=== PATIENT | female | born 1965 | race Caucasian/White ===

== ENCOUNTER 2017-11-18 11:18 | Outpatient (CLI) | payer OTHER ==
--- NOTE | 2017-11-22 09:00 | Mammography Report ---
BILATERAL DIGITAL SCREENING MAMMOGRAM: 11/19/2017 CLINICAL INDICATION: A 52-year-old with history of late childbearing for screening. TECHNIQUE: Routine CC and MLO projections as well as bilateral laterally exaggerated craniocaudal views were obtained of the breasts. COMPARISON: 05/2015, 04/2015, 01/2012, 11/2010. FINDINGS: The breasts again demonstrate heterogeneously dense fibroglandular parenchyma bilaterally. Coarse and punctate, typically benign calcifications are present. A cardiac rhythm recorder is noted in the left lower inner breast. No suspicious masses, clustered microcalcifications, or regions of architectural distortion are identified. IMPRESSION: Benign findings. RECOMMENDATIONS: Routine annual screening unless otherwise clinically indicated. BIRADS category 2 benign findings. STANDARD QUALIFYING STATEMENTS 1. This examination was reviewed with the aid of Computed-Aided Detection (CAD) . 2. A negative or benign imaging report should not delay biopsy if clinically suspicious findings are present. Consider surgical consultation if warranted. More than 5% of cancers are not identified by imaging. 3. Dense breasts may obscure an underlying neoplasm. TD: 11/19/2017 19:10 HAL
== END 2017-11-18 11:19 | disposition home or self-care (01) ==
LOC: DI 11:18
PROVIDERS: ATTEND Family Medicine
DX: Z12.31 Encounter for screening mammogram for malignant neoplasm of breast (principal)
CPT/HCPCS: 77067

== ENCOUNTER 2020-06-03 10:32 | Emergency (ER) | payer OTHER ==
--- NOTE | 2020-06-03 11:14 | XRAY Report ---
PROCEDURE: Foot 3 View LT INDICATIONS: fall, L foot pain TECHNIQUE: 3 views of the foot were acquired. COMPARISON: None. FINDINGS: Bones: Oblique fracture through the fifth metatarsal shaft. No significant displacement. No dislocat ions. No suspicious bony lesions. Soft tissues: No tibiotalar joint effusion. Achilles tendon appears normal. IMPRESSION: Oblique fracture through the fifth metatarsal shaft. Reviewed by: Nura Singh MD on 06/03/2020 11:13 AM PDT Approved by: Nura Singh MD on 06/03/2020 11:13 AM PDT Station ID: [id number]
--- NOTE | 2020-06-03 11:17 | ED Physician Documentation ---
History of Present Illness - Stated complaint Stated Complaint: LT FOOT INJURY - Chief complaint Chief Complaint: Ext Problem - History obtained from History obtained from: Patient, Family - History of Present Illness Timing: Today Pain level max: 6 Pain level now: 5 - Additonal information Additional information: 55-year-old female was running today when she stepped off a curb awkwardly and injured the lateral aspect of her left foot. Worse with walking, better with rest. No swelling or deformity. No other injuries. No numbness or tingling. 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 : None HEENT: Other Psych: None Musculoskeletal: None Derm: None - Past Surgical History Past Surgical History: Yes General: Colonoscopy - Present Medications Home Medications: Ambulatory Orders Medication Instructions Recorded Confirmed Cyclobenzaprine [Flexeril] 10 mg PO TID PRN #60 tablet 08/28/16 HYDROcod/ACETAM 5/325 [[place] 5/325] 1 tab PO Q4HR PRN #45 tablet 08/28/16 Ibuprofen [Motrin] 600 mg PO Q6HR PRN #60 tablet 08/28/16 polyethylene glycoL 3350 [Miralax] 17 gm PO DAILY #2 packet 08/28/16 - Allergies Allergies/Adverse Reactions: Allergies Allergy/AdvReac Type Severity Reaction Status Date / Time No Known Drug Allergies Allergy Verified 06/03/20 10:41 - Social History Does the pt smoke?: No Smoking Status: Never smoker Does the pt drink ETOH?: No Does the pt have substance abuse?: No - Immunizations Immunizations are current?: Yes - POLST Patient has POLST: No PD ED PE NORMAL - Vitals Vital signs reviewed: Yes - General General: Alert and oriented X 3, No acute distress, Well developed/nourished - HEENT HEENT: Moist mucous membranes - Derm Derm: Warm and dry - Extremities Extremities: Other (Tender to palpation over the distal aspect of the fifth metatarsal. Neurovascularly intact. No deformity. No swelling. Otherwise normal examination of the left foot, ankle and lower leg) - Neuro Neuro: Alert and oriented X 3 Results - Vitals Vitals: Vital Signs - 24 hr 06/03/20 06/03/20 10:35 11:53 Temperature 36.2 C L 37.1 C Heart Rate 65 71 Respiratory 16 18 Rate Blood Pressure 112/89 H 117/84 H O2 Saturation 100 9 L Oxygen O2 Source Room air - Rads (name of study) Left foot x-ray Radiology: Prelim report reviewed, EMP read contemporaneously, See rad report (Oblique fracture through the fifth metatarsal shaft. ) Procedures - Splint (location) Left lower extremity Splint applied by: Physician, Tech Type of splint: Fiberglass, Short leg, Posterior Other: Patient tolerated well, No complications, Neurovascular intact, Other (Patient has her own crutches) PD MEDICAL DECISION MAKING - ED course Complexity details: reviewed results, re-evaluated patient, considered di fferential, d/w patient, d/w family ED course: Patient with an oblique fracture of the fifth metatarsal. Placed in a short leg posterior splint. She has her own crutches. We will have her follow-up with orthopedics for further care. We will make her nonweightbearing at this time. Patient declines pain medication for home. Patient counseled regarding signs and symptoms for which I believe and urgent re-evaluation would be necessary. Patient with good understanding of and agreement to plan and is comfortable going home at this time This document was made in part using voice recognition software. While efforts are made to proofread this document, sound alike and grammatical errors may occur. Neurovascular intact after splint application Departure - Departure Disposition: 01 Home, Self Care Clinical Impression: Fracture of fifth metatarsal bone Qualifiers: Encounter type: initial encounter Fracture type: closed Fracture alignment: nondisplaced Laterality: left Qualified Code(s): S92.355A - Nondisplaced fracture of fifth metatarsal bone, left foot, initial encounter for closed fracture Condition: Good Instructions: ED Fx Foot Follow-Up: Madeleine Alamo DO [Primary Care Provider] - [facility] [Provider Group] - Within 1 week Comments: Return if you worsen. Follow-up with orthopedics in about a week for repeat evaluation. Discharge Date/Time: 06/03/20 11:53
[2020-06-03 11:54] VITALS: BP 117/84
== END 2020-06-03 11:53 | disposition home or self-care (01) ==
LOC: ED 10:32
DX: S92.355A Nondisplaced fracture of fifth metatarsal bone, left foot, initial encounter for closed fracture (principal); X50.1XXA Overexertion from prolonged static or awkward postures, initial encounter; Y93.02 Activity, running
CPT/HCPCS: 29515

== ENCOUNTER 2020-07-18 09:00 | Outpatient (CLI) | payer OTHER ==
--- NOTE | 2020-07-18 13:37 | XRAY Report ---
PROCEDURE: Foot 3 View LT INDICATIONS: LEFT 5TH METATARSAL FRACTURE TECHNIQUE: 3 views of the foot were acquired. COMPARISON: 06/03/2020 FINDINGS: Bones: Again noted is a oblique shaft fracture of the fifth metatarsal. Mild displacement has develop ed. There is early progress in healing. No other fractures or dislocations. Disuse osteopenia. Soft tissues: No tibiotalar joint effusion. Achilles tendon appears normal. IMPRESSION: Interval development of mild displacement of a mid shaft fifth metatarsal fracture. Early progress in healing. Reviewed by: Derek Patterson MD on 07/18/2020 9:28 AM PDT Approved by: Derek Patterson MD on 07/18/2020 9:28 AM PDT Station ID: [id number]
== END 2020-07-18 23:59 | disposition home or self-care (01) ==
LOC: DI.WCP 09:00
PROVIDERS: ATTEND Orthopaedic Surgery
DX: S92.352D Displaced fracture of fifth metatarsal bone, left foot, subsequent encounter for fracture with routine healing (principal)

== ENCOUNTER 2021-01-31 16:33 | Outpatient (CLI) | payer OTHER ==
--- NOTE | 2021-01-31 17:19 | XRAY Report ---
PROCEDURE: Knee 4 View RT INDICATIONS: RT KNEE PAIN TECHNIQUE: 4 views of the right knee(s) were acquired. COMPARISON: None. FINDINGS: Bones: No fractures or dislocations. Mild tricompartment osteoarthritis is seen more prominent in me dial femoral tibial compartment. No suspicious bony lesions. Soft tissues: Small to moderate suprapatellar joint effusion is noted. No suspicious soft tissue calc ifications. IMPRESSION: Mild tricompartment osteoarthritis and small to moderate suprapatellar joint effusion. Reviewed by: Dao Maria MD on 01/31/2021 5:18 PM PST Approved by: Dao Maria MD on 01/31/2021 5:18 PM PST Station ID: [id number]
== END 2021-01-31 16:34 | disposition home or self-care (01) ==
LOC: DI 16:33
PROVIDERS: ATTEND Family Medicine
DX: M17.11 Unilateral primary osteoarthritis, right knee (principal); M25.461 Effusion, right knee

== ENCOUNTER 2022-02-21 09:32 | Outpatient (CLI) | payer OTHER ==
[2022-02-21 11:50] LABS: BASOPHILS # (AUTO) 0.1 10^3/uL (0.0-0.1); BASOPHILS % (AUTO) 1.3 %; EOSINOPHILS # (AUTO) 0.3 10^3/uL (0.0-0.7); EOSINOPHILS % (AUTO) 4.8 %; HCT - HEMATOCRIT 39.8 % (37.0-47.0); HGB - HEMOGLOBIN 13.3 g/dL (12.0-16.0); LYMPHOCYTES # (AUTO) 2.2 10^3/uL (1.5-3.5); LYMPHOCYTES % (AUTO) 34.4 %; MEAN CORPUSCULAR HEMOGLOBIN 30.6 pg (27.0-31.0); MEAN CORPUSCULAR HGB CONC 33.4 g/dL (32.0-36.0); MEAN CORPUSCULAR VOLUME 91.7 fL (81.0-99.0); MEAN PLATELET VOLUME 9.5 fL (7.9-10.8); MONOCYTES # (AUTO) 0.5 10^3/uL (0.0-1.0); MONOCYTES % (AUTO) 7.8 %; NEUTROPHILS # (AUTO) 3.3 10^3/uL (1.5-6.6); NEUTROPHILS % (AUTO) 51.4 %; PLT - PLATELET COUNT 248 10^3/uL (130-450); RED BLOOD COUNT 4.34 10^6/uL (4.20-5.40); RED CELL DISTRIBUTION WIDTH 12.7 % (12.0-15.0); WHITE BLOOD COUNT 6.4 x10^3/uL (4.8-10.8)
[2022-02-21 12:37] LABS: BILIRUBIN,TOTAL 0.5 mg/dL (0.2-1.0); CALCIUM 9.3 mg/dL (8.5-10.3); CREATININE 0.8 mg/dL (0.4-1.0); CRP - C-REACTIVE PROTEIN 3.7 mg/dL (0-1.0); POTASSIUM 4.5 mmol/L (3.5-5.0); TOTAL PROTEIN 8.1 g/dL (6.7-8.2)
[2022-02-21 12:47] LABS: THYROID STIMULATING HORMONE 1.74 uIU/mL (0.34-5.60)
== END 2022-02-21 09:33 | disposition home or self-care (01) ==
LOC: LAB.N 09:32
PROVIDERS: ATTEND Physician Assistant Medical
DX: G44.209 Tension-type headache, unspecified, not intractable (principal)
CPT/HCPCS: 36415; 80053; 84443; 85025; 85651; 86140

== ENCOUNTER 2022-02-21 14:50 | Outpatient (CLI) | payer OTHER ==
--- NOTE | 2022-02-21 15:13 | CT Report ---
PROCEDURE: HEAD WO INDICATIONS: TENSION HEADACHE TECHNIQUE: Noncontrast 4.5 mm thick angled axial sections acquired from the foramen magnum to the vertex. For r adiation dose reduction, the following was used: automated exposure control, adjustment of mA and/or kV according to patient size. COMPARISON: None. FINDINGS: Image quality: Excellent. CSF spaces: Basal cisterns are patent. No extra-axial fluid collections. Ventricles are normal in size and shape. Brain: No midline shift. No intracranial masses or hemorrhage. Benoit-white matter interface is norm al. Skull and face: Calvarium and visualized facial bones are intact, without suspicious lesions. Sinuses: Visualized sinuses and mastoids are clear. IMPRESSION: No CT evidence of acute intracranial abnormalities. Reviewed by: Dao Maria MD on 02/21/2022 3:12 PM PDT Approved by: Dao Maria MD on 02/21/2022 3:12 PM PDT Station ID: [id number]
== END 2022-02-21 14:51 | disposition home or self-care (01) ==
LOC: DI 14:50
PROVIDERS: ATTEND Physician Assistant Medical
DX: G44.209 Tension-type headache, unspecified, not intractable (principal)

== ENCOUNTER 2022-03-02 08:49 | Emergency (ER) | payer OTHER ==
--- NOTE | 2022-03-02 09:32 | ED Physician Documentation ---
PD HPI HEADACHE - Stated complaint Stated Complaint: HEAD PX - Chief complaint Chief Complaint: Neuro - History obtained from History obtained from: Patient - History of Present Illness Timing - onset: How many days ago (24) Timing - onset during: Rest Timing - duration: Days (24) Timing - details: Gradual onset, Still present Pain level max: 6 Pain level now: 5 Location: Global Quality: Tightness Associated symptoms: Nausea, Other (tinitus). No: Fever, Stiff neck, Vomiting, Weakness, Numbness, Syncope, Seizure, Eye pain, Vision changes Improved by: Nothing Worsened by: Other (excersize) Contributing factors: Recent illness (had COVID in December). No: Anticoagulated, Hypertension Similar symptoms before: Has not had sx before Recently seen: Clinic - Additional information Additional information: 56-year-old female previously well developed COVID in December of this year and she had the of her father and that month as well. She has now developed a headache over the past 24 days that has been present daily described as a band around her head of tightness. She has some pain to the left mastoid area. She has had some ringing in her ears as well. Otherwise she has no other specific symptoms. She initially continue to do her physical activity her running and hiking and found that maybe her headache was a little worse after that. She stopped doing this over the past 2 weeks. Despite that she is not had any r esolution of her headache. She is gone in to see JUJU Juárez has had a blood work done and a CAT scan of her head and she has been trialed on some Flexeril she is not had relief with Toradol she is not had relief with ibuprofen or Tylenol. She describes that she does not feel that she is currently under stress despite the fact that she has had the recent passage of her father 2 months ago. 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 She has not have vomiting, photophobia, stiff neck, fever, ear nose or throat congestion. She does not have a rash in the scalp or area of redness or tenderness except for the left mastoid which is mildly tender. Review of Systems Constitutional: denies: Fever Eyes: denies: Decreased vision Ears: denies: Ear pain Nose: denies: Rhinorrhea / runny nose, Congestion Throat: denies: Sore throat Cardiac: denies: Chest pain / pressure, Palpitations Respiratory: denies: Dyspnea, Cough GI: reports: Nausea. denies: Abdominal Pain, Vomiting, Constipation, Diarrhea : denies: Dysuria, Frequency Skin: denies: Rash Musculoskeletal: denies: Neck pain, Back pain, Extremity pain, Joint swelling Neurologic: reports: Headache. denies: Generalized weakness, Focal weakness, Numbness, Difficulty speaking, Near syncope, Syncope, Seizure, Confused, Altered mental status, Head injury, LOC Psychiatric: reports: Insomnia. 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 : None HEENT: Other Psych: None Musculoskeletal: None Derm: None - Past Surgical History Past Surgical History: Yes General: Colonoscopy - Present Medications Home Medications: Ambulatory Orders Medication Instructions Recorded Confirmed HYDROcod/ACETAM 5/325 [[place] 5/325] 1 - 2 tablet PO Q6H PRN #14 tablet 03/02/22 - Allergies Allergies/Adverse Reactions: Allergies Allergy/AdvReac Type Severity Reaction Status Date / Time No Known Drug Allergies Allergy Verified 06/03/20 10:41 - Social History Does the pt smoke?: No Smoking Status: Never smoker Does the pt drink ETOH?: No Does the pt have substance abuse?: No - Immunizations Immunizations are current?: Yes - POLST Patient has POLST: No PD ED PE NORMAL - Vitals Vital signs reviewed: Yes (normal ) - General General: Alert and oriented X 3, No acute distress, Well developed/nourished - HEENT HEENT: Atraumatic, PERRL, EOMI, Ears normal, Moist mucous membranes, Pharynx benign, Dentition benign - Neck Neck: Supple, no meningeal sign, No bony TTP, No adenopathy, Other (no tenderness or muscle tightness to the trapezius at the insertion to the occiput. mild tenderness to the left mastoid air cells. 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, No motor deficit, No sensory deficit, Normal speech Eye Opening: Spontaneous Motor: Obeys Commands Verbal: Oriented GCS Score: 15 - Psych Psych: Normal mood, Normal affect Results - Vitals Vitals: Vital Signs - 24 hr 03/02/22 08:53 Temperature 36.4 C L Heart Rate 84 Respiratory 18 Rate Blood Pressure 117/64 O2 Saturation 100 Oxygen O2 Source Room air - Labs Labs: Laboratory Tests 03/02/22 03/02/22 03/02/22 09:31 09:31 09:31 WBC 9.6 RBC 4.37 Hgb 13.5 Hct 40.2 MCV 92.0 MCH 30.9 MCHC 33.6 RDW 13.2 Plt Count 252 MPV 8.5 Neut # (Auto) 3.9 Lymph # (Auto) 4.5 H [place] # (Auto) 0.7 Eos # (Auto) 0.3 Baso # (Auto) 0.1 Absolute Nucleated RBC 0.00 Nucleated RBC % 0.0 Manual Slide Review Indicated WBC Morphology 1+ REACTIVE LYMPHS Platelet Estimate NORMAL (130-450,000) Platelet Morphology NORMAL APPEARANCE RBC Morph Micro Appear NORMAL APPEARANCE ESR 46 H Sodium 130 L Potassium 4.2 Chloride 96 L Carbon Dioxide 27 Anion Gap 7.0 BUN 13 Creatinine 0.7 Estimated GFR (MDRD) 86 L Glucose 98 Calcium 8.9 Total Bilirubin 0.7 AST 37 ALT 65 H Alkaline Phosphatase 138 H C-Reactive Protein 2.2 H Total Protein 7.4 Albumin 3.4 Globulin 4.0 Albumin/Globulin Ratio 0.9 L Lipase 33 TSH 03/02/22 09:31 WBC RBC Hgb Hct MCV MCH MCHC RDW Plt Count MPV Neut # (Auto) Lymph # (Auto) [place] # (Auto) Eos # (Auto) Baso # (Auto) Absolute Nucleated RBC Nucleated RBC % Manual Slide Review WBC Morphology Platelet Estimate Platelet Morphology RBC Morph Micro Appear ESR Sodium Potassium Chloride Carbon Dioxide Anion Gap BUN Creatinine Estimated GFR (MDRD) Glucose Calcium Total Bilirubin AST ALT Alkaline Phosphatase C-Reactive Protein Total Protein Albumin Globulin Albumin/Globulin Ratio Lipase TSH 1.17 PD MEDICAL DECISION MAKING - ED course Complexity details: reviewed old records, reviewed results, re-evaluated patient, considered differential, d/w patient ED course: 56-year-old female with a 24-day long history of persistent daily headache without vomiting photophobia or meningismus has had COVID 2 months ago and she likely has a post COVID headache. She has elevated inflammatory markers and these appear to be improving. I did not find any physical exam finding to be concern for meningitis. The patient has had imaging done which was unrema rkable. I specifically evaluated the images for mastoiditis and found no indication. She has elevated CRP and ESR the CRP is trending down the ESR is lagging and going up. The Alkaline phosphatase is decreasing as is the AST and ALT. Temporal arteritis is still in the differential but the patient did not respond to steroid at a reasonable dose and all of this seems to indicate something different like the post covid headache described by others. Today we will provide some symptomatic relief with narcotic pain reliever especially for sleep at night. I have made a referral to Dr. Loya to consider temporal artery biopsy if she does not spontaneously resolve. Departure - Departure Disposition: 01 Home, Self Care Clinical Impression: Post-COVID chronic headache Condition: Stable Instructions: ED Cephalgia Unspecified Follow-Up: Tarah Juárez PA-C [Primary Care Provider] - Froy Loya MD [Provider Admit Priv/Credential] - Prescriptions: HYDROcod/ACETAM 5/325 [[place] 5/325] 1 - 2 tablet PO Q6H PRN #14 tablet PRN Reason: Pain Comments: Chelo today it looks like the headache you have may be related to long COVID. There are elevated inflammatory markers that are improving. These elevated inflammatory markers can be a sign of temporal arteritis or giant cell arteritis and a follow-up with the silk screen etcher for potential biopsy is indicated.We have provided some narcotic pain reliever for symptomatic relief and these have been E scribed to [facility] in [place]. My recommendation is to take them as needed at night for sleep. My best wish for you is to have resolution of your symptoms spontaneously over the next weeks and not have to undergo the biopsy.
[2022-03-02 09:36] LABS: BASOPHILS # (AUTO) 0.1 10^3/uL (0.0-0.1); BASOPHILS % (AUTO) 0.9 %; EOSINOPHILS # (AUTO) 0.3 10^3/uL (0.0-0.7); EOSINOPHILS % (AUTO) 3.2 %; HCT - HEMATOCRIT 40.2 % (37.0-47.0); HGB - HEMOGLOBIN 13.5 g/dL (12.0-16.0); LYMPHOCYTES # (AUTO) 4.5 10^3/uL (1.5-3.5); LYMPHOCYTES % (AUTO) 47.1 %; MEAN CORPUSCULAR HEMOGLOBIN 30.9 pg (27.0-31.0); MEAN CORPUSCULAR HGB CONC 33.6 g/dL (32.0-36.0); MEAN PLATELET VOLUME 8.5 fL (7.9-10.8); MONOCYTES # (AUTO) 0.7 10^3/uL (0.0-1.0); MONOCYTES % (AUTO) 7.6 %; NEUTROPHILS # (AUTO) 3.9 10^3/uL (1.5-6.6); NEUTROPHILS % (AUTO) 40.5 %; PLT - PLATELET COUNT 252 10^3/uL (130-450); RED BLOOD COUNT 4.37 10^6/uL (4.20-5.40); RED CELL DISTRIBUTION WIDTH 13.2 % (12.0-15.0); WHITE BLOOD COUNT 9.6 x10^3/uL (4.8-10.8)
[2022-03-02 09:56] LABS: ALBUMIN 3.4 g/dL (3.2-5.5); ALBUMIN/GLOBULIN RATIO 0.9 (1.0-2.2); BILIRUBIN,TOTAL 0.7 mg/dL (0.2-1.0); CALCIUM 8.9 mg/dL (8.5-10.3); CREATININE 0.7 mg/dL (0.4-1.0); CRP - C-REACTIVE PROTEIN 2.2 mg/dL (0-1.0); POTASSIUM 4.2 mmol/L (3.5-5.0); TOTAL PROTEIN 7.4 g/dL (6.7-8.2)
[2022-03-02 09:57] LABS: SLIDE REVIEW? Indicated
[2022-03-02 10:30] LABS: RBC MORPHOLOGY (MULTIPLE) NORMAL APPEARANCE (NORMAL)
[2022-03-02 10:31] LABS: PLATELET ESTIMATE, MANUAL NORMAL (130-450,000) (NORMAL); PLATELET MORPHOLOGY NORMAL APPEARANCE (NORMAL); WBC MORPHOLOGY (MULTIPLE) 1+ REACTIVE LYMPHS (NORMAL)
[2022-03-02 11:13] VITALS: BP 110/80
== END 2022-03-02 11:12 | disposition home or self-care (01) ==
LOC: ED 08:49
DX: U09.9 Post COVID-19 condition, unspecified (principal); R51.9 Headache, unspecified
CPT/HCPCS: 36415; 80053; 83690; 84443; 85025; 85651; 86140; 99283; 99284

== ENCOUNTER 2022-09-10 12:21 | Outpatient (CLI) | payer OTHER ==
--- NOTE | 2022-09-11 11:33 | Mammography Report ---
BILATERAL DIGITAL SCREENING MAMMOGRAM 3D/2D: 09/10/2022 CLINICAL: Routine screening. Comparison is made to exams dated: 11/18/2017 mammogram, 05/09/2015 ultrasound, 05/09/2015 mammogram, mammogram, and 02/19/2012 mammogram - [facility]. There are scattered areas of fibroglandular density in both breasts (category b / 25%-50% glandular t issue). There is an irregular asymmetry in the right breast middle depth medial region seen on the craniocaud al view only. No other significant masses, calcifications, or other findings are seen in either breast. IMPRESSION: INCOMPLETE: NEEDS ADDITIONAL IMAGING EVALUATION The irregular asymmetry in the right breast is indeterminate. Additional views with possible ultraso und are recommended. Based on the Tyrer Cuzick model (a risk assessment model) the patients lifetime risk is 9.3% and her 10 year risk is 3.4%. According to the ACR, ACS, and NCCN guidelines, an annual breast MRI exam noé g with mammogram is recommended if the patients lifetime risk is 20% or greater. This exam was interpreted at Station ID: [id number]. NOTE: For mammograms, a report in lay terms will be sent to the patient. Approximately 15% of breast malignancies will not be visualized mammographically. In the management of a palpable breast mass, a negative mammogram must not discourage biopsy of a clinically suspicious lesion. Electronically Signed By: Saman Real M.D. acr/:09/10/2022 13:03:31 ACR BI-RADS Category 0: Incomplete 3340F PARENCHYMAL PATTERN: (A) - The breast(s) demonstrate(s) scattered fibroglandular densities. BI-RADS CATEGORY: (0) - 0 Mammo and [place] [id number] Immediate follow-up LATERALITY: (R)
== END 2022-09-10 12:22 | disposition home or self-care (01) ==
LOC: DI.N 12:21
DX: Z12.31 Encounter for screening mammogram for malignant neoplasm of breast (principal); R92.8 Other abnormal and inconclusive findings on diagnostic imaging of breast

== ENCOUNTER 2022-09-27 12:26 | Outpatient (CLI) | payer OTHER ==
--- NOTE | 2022-09-28 11:18 | Mammography Report ---
UNILATERAL RIGHT DIGITAL DIAGNOSTIC MAMMOGRAM 3D/2D: 09/27/2022 CLINICAL: Patient returns today to evaluate an asymmetry in the right breast. Comparison is made to exams dated: 09/10/2022 mammogram, 11/18/2017 mammogram, 05/09/2015 mammogram, a nd 04/26/2015 mammogram - [facility]. There are scattered areas of fibroglandular density in the right breast (category b / 25%-50% glandul ar tissue). There is a focal asymmetry in the right breast at 5 o'clock anterior depth. This is less prominent. No other significant masses or calcifications are seen in the breast. IMPRESSION: INCOMPLETE: NEEDS ADDITIONAL IMAGING EVALUATION The focal asymmetry in the right breast is indeterminate. An ultrasound is recommended. Based on the Tyrer Cuzick model (a risk assessment model) the patients lifetime risk is 9.9% and her 10 year risk is 3.6%. According to the ACR, ACS, and NCCN guidelines, an annual breast MRI exam noé g with mammogram is recommended if the patients lifetime risk is 20% or greater. This exam was interpreted at Station ID: [id number]. NOTE: For mammograms, a report in lay terms will be sent to the patient. Approximately 15% of breast malignancies will not be visualized mammographically. In the management of a palpable breast mass, a negative mammogram must not discourage biopsy of a clinically suspicious lesion. Electronically Signed By: Jamari cloud/chirs:09/28/2022 09:45:11 ACR BI-RADS Category 0: Incomplete 3340F PARENCHYMAL PATTERN: (A) - The breast(s) demonstrate(s) scattered fibroglandular densities. BI-RADS CATEGORY: (0) - 0 Ultrasound [id number] Immediate follow-up LATERALITY: (R)
--- NOTE | 2022-09-28 11:18 | Ultrasound Report ---
LIMITED ULTRASOUND OF RIGHT BREAST: 09/27/2022 CLINICAL: Patient returns today to evaluate an asymmetry in the right breast. Comparison is made to exams dated: 09/27/2022 mammogram, 09/10/2022 mammogram, and 11/18/2017 mammog [facility]. Color flow and real-time ultrasound of the right breast 5-6 o'clock region were performed. Benoit scal e images of the real-time examination were reviewed. There is a benign 0.7 cm x 0.6 cm x 0.4 cm lymph node with a circumscribed margin in the right breast at 5 o'clock middle depth 3 cm from the nipple. This lymph node is hypoechoic with fatty hilum. Th is most likely correlates with mammography findings. Color flow imaging demonstrates that there is v ascularity present. IMPRESSION: BENIGN There is no sonographic evidence of malignancy. The 0.7 cm x 0.6 cm x 0.4 cm lymph node in the right breast is benign. Return to annual mammogram screening schedule is recommended. This exam was interpreted at Station ID: [id number]. Electronically Signed By: Jamari Bobby M.D. ar/:09/28/2022 09:47:06 Ultrasound BI-RADS: 2 Benign BI-RADS CATEGORY: (2) - 2 Mammogram [id number] return to screening LATERALITY: (B)
== END 2022-09-27 12:27 | disposition home or self-care (01) ==
LOC: DI 12:26
PROVIDERS: ATTEND Nurse Practitioner Family
DX: R92.8 Other abnormal and inconclusive findings on diagnostic imaging of breast (principal)

== ENCOUNTER 2023-09-04 16:32 | Outpatient (CLI) | payer OTHER | END 2023-09-04 16:33 | disposition EMS.NT | LOC: EMS 16:32 | DX: Z04.1 Encounter for examination and observation following transport accident (principal) ==

== ENCOUNTER 2023-10-11 10:04 | Outpatient (CLI) | payer OTHER ==
--- NOTE | 2023-10-11 14:20 | XRAY Report ---
PROCEDURE: Chest 2 View X-Ray INDICATIONS: COUGH TECHNIQUE: 2 views of the chest were acquired. COMPARISON: None. FINDINGS: Surgical changes and devices: There is a leadless cardiac monitoring device. Lungs and pleura: Hyperinflation consistent with COPD. Right middle lobe and lower infiltrate suspic ious for pneumonia. No pleural effusions or pneumothorax. Mediastinum: Mediastinal contours appear normal. Heart size is normal. Bones and chest wall: No suspicious bony lesions. Overlying soft tissues appear unremarkable. IMPRESSION: Right middle and lower lobe pneumonia. Reviewed by: Bruce Spann MD on 10/11/2023 2:18 PM PST Approved by: Bruce Spann MD on 10/11/2023 2:18 PM PST Station ID: [id number]
== END 2023-10-11 10:05 | disposition home or self-care (01) ==
LOC: DI 10:04
PROVIDERS: ATTEND Physician Assistant Medical
DX: J18.9 Pneumonia, unspecified organism (principal)

== ENCOUNTER 2023-12-23 14:29 | Outpatient (CLI) | payer OTHER ==
--- NOTE | 2023-12-24 11:05 | Mammography Report ---
BILATERAL DIGITAL SCREENING MAMMOGRAM 3D/2D: 12/23/2023 CLINICAL: Routine screening. Comparison is made to exams dated: 09/27/2022 ultrasound, 09/27/2022 mammogram, 09/10/2022 mammogram , 11/18/2017 mammogram, 05/09/2015 ultrasound, and 05/09/2015 mammogram - [facility]. Both breasts are heterogeneously dense, which may obscure small masses (category c / 51-75% glandular tissue). No significant masses, calcifications, or other findings are seen in either breast. There has been no significant interval change. IMPRESSION: NEGATIVE There is no mammographic evidence of malignancy. A 1 year screening mammogram is recommended. Based on the Tyrer Cuzick model (a risk assessment model) the patient's lifetime risk is 14.5% and he r 10 year risk is 5.7%. According to the ACR, ACS, and NCCN guidelines, an annual breast MRI exam lala ng with mammogram is recommended if the patients lifetime risk is 20% or greater. This exam was interpreted at Station ID: [id number]. NOTE: For mammograms, a report in lay terms will be sent to the patient. Approximately 15% of breast malignancies will not be visualized mammographically. In the management of a palpable breast mass, a negative mammogram must not discourage biopsy of a clinically suspicious lesion. Electronically Signed By: Kana borrego/chris:12/23/2023 17:44:38 ACR BI-RADS Category 1: Negative 3341F PARENCHYMAL PATTERN: (D) - The breast(s) demonstrate(s) heterogeneously dense fibroglandular juan barraza. BI-RADS CATEGORY: (1) - 1 Mammogram [id number] 1 year screening LATERALITY: (B)
== END 2023-12-23 14:30 | disposition home or self-care (01) ==
LOC: DI.N 14:29
DX: Z12.31 Encounter for screening mammogram for malignant neoplasm of breast (principal); R92.333 Mammographic heterogeneous density, bilateral breasts

== ENCOUNTER 2024-05-06 08:18 | Outpatient (CLI) | payer OTHER ==
[2024-05-06 11:48] LABS: BASOPHILS # (AUTO) 0.1 10^3/uL (0.0-0.1); BASOPHILS % (AUTO) 1.1 %; EOSINOPHILS # (AUTO) 0.2 10^3/uL (0.0-0.7); HCT - HEMATOCRIT 41.5 % (37.0-47.0); HGB - HEMOGLOBIN 13.6 g/dL (12.0-16.0); LYMPHOCYTES # (AUTO) 2.1 10^3/uL (1.5-3.5); LYMPHOCYTES % (AUTO) 28.4 %; MEAN CORPUSCULAR HGB CONC 32.8 g/dL (32.0-36.0); MEAN CORPUSCULAR VOLUME 94.5 fL (81.0-99.0); MEAN PLATELET VOLUME 9.6 fL (7.9-10.8); MONOCYTES # (AUTO) 0.6 10^3/uL (0.0-1.0); MONOCYTES % (AUTO) 8.2 %; NEUTROPHILS # (AUTO) 4.4 10^3/uL (1.5-6.6); PLT - PLATELET COUNT 314 10^3/uL (130-450); RED BLOOD COUNT 4.39 10^6/uL (4.20-5.40); RED CELL DISTRIBUTION WIDTH 12.4 % (12.0-15.0); WHITE BLOOD COUNT 7.4 x10^3/uL (4.8-10.8)
[2024-05-06 12:19] LABS: ALBUMIN 4.2 g/dL (3.2-5.5); ALBUMIN/GLOBULIN RATIO 1.1 (1.0-2.2); ALKALINE PHOSPHATASE 106 IU/L (42-121); ALT ALANINE AMINOTRANSFERASE 20 IU/L (10-60); AST ASPARTATE AMINOTRANSFERASE 24 IU/L (10-42); BILIRUBIN,TOTAL 0.5 mg/dL (0.2-1.0); BUN - BLOOD UREA NITROGEN 17 mg/dL (6-20); CALCIUM 10.1 mg/dL (8.5-10.3); CARBON DIOXIDE - CO2 30 mmol/L (21-32); CHLORIDE 102 mmol/L (101-111); CHOL/HDL RATIO 3.2 (<4.4); CHOLESTEROL 226 mg/dL; CREATININE 0.8 mg/dL (0.6-1.3); GFR - MDRD 73 (>89); GLUCOSE 95 mg/dL (74-104); HDL CHOLESTEROL 70 mg/dL; LDL CHOLESTEROL,CALCULATED 134 mg/dL; LDL/HDL RATIO 1.9 (<4.4); POTASSIUM 4.4 mmol/L (3.5-4.5); SODIUM 136 mmol/L (135-145); TOTAL PROTEIN 7.9 g/dL (6.4-8.9); TRIGLYCERIDES 109 mg/dL (48-352); VLDL CHOLESTEROL 22 mg/dL
[2024-05-06 12:50] LABS: THYROID STIMULATING HORMONE 1.35 uIU/mL (0.34-5.60)
[2024-05-06 13:15] LABS: ESTIMATED AVERAGE GLUCOSE 111 mg/dL (70-100); HEMOGLOBIN A1c% 5.5 % (4.27-6.07)
== END 2024-05-06 08:19 | disposition home or self-care (01) ==
LOC: LAB.N 08:18
PROVIDERS: ATTEND Family Medicine
DX: Z00.00 Encounter for general adult medical examination without abnormal findings (principal)
CPT/HCPCS: 36415; 80053; 80061; 83036; 83721; 84443; 85025